=== PATIENT | female | born 1995 | race Caucasian/White ===

== ENCOUNTER 2017-11-19 18:12 | Emergency (ER) | payer OTHER ==
[~2017-11-19] VITALS: Ht 165.1 cm; Wt 50.0 kg
[2017-11-19 18:27] VITALS: BP 148/84; PULSE 90; RESP 16; TEMP 98.9; O2SAT 99
[2017-11-19 19:48] LABS: BACTERIA, URINE RARE /hpf; BILIRUBIN, URINE NEG (NEG); BLOOD, URINE NEG (NEG); GLUCOSE,URINE NEG (NEG); KETONE, URINE NEG (NEG); NITRITE,URINE NEG (NEG); SQUAMOUS EPITHELIAL CELL URINE <1 /hpf (0-5); URINE COLOR LIGHT-YELLOW (YELLW/STRAW); URINE LEUKOCYTE ESTERASE NEG (NEG)
--- NOTE | 2017-11-19 20:34 | PD ---
HPI Chief Complaint: Complaint Time Seen by Provider: 20:22 Travel History International Travel<30 days: No Contact w/Intl Traveler<30days: No Traveled to known affect area: No History of Present Illness HPI This patient was examined in the presence of a female nurse. 21-year-old female presents for evaluation of increased urinary frequency and vaginal discharge. Symptoms started 30 days ago. She reports that she was seen at an outside urgent care center and prescribed ciprofloxacin which she has been taking for the past 20 days. The increased urinary frequency and vaginal discharge persists and this is what prompted evaluation. She reports that the discharge is brown in color. She reports associated lower back discomfort but not focal unilateral flank pain. She endorses slight nausea. Denies dysuria, fevers, chills, myalgias. She reports a history of very frequent UTIs over the past few years. She moved from [place] to this region in April 2017. She does not currently have a primary care physician. No other complaints at this time. PFSH Past Medical History Respiratory: Yes (ASTHMA) ?: Not LMP: 11/11/17 Social History Alcohol Use: No Tobacco Use: No Allergies-Medications (Allergen,Severity, Reaction): Coded Allergies: No Known Allergies (Unverified , 11/19/17) Reported Meds & Prescriptions Reported Meds & Active Scripts Active Doxycycline Hyclate 100 Mg Cap 100 Mg PO BID Flagyl (Metronidazole) 500 Mg Tab 500 Mg PO BID 14 Days Reported Xanax (Alprazolam) 0.5 Mg Tab 0.5 Mg PO Q8H PRN Carnitor Liq (Levocarnitine) 1 Gm/10 Ml Soln 500 Mg PO BID Singulair (Montelukast Sodium) 10 Mg Tab 10 Mg PO HS Review of Systems Except as stated in HPI: all other systems reviewed are Neg Physical Exam Narrative GENERAL: Well-developed well-nourished female no acute distress SKIN: Warm and dry. HEAD: Atraumatic. Normocephalic. EYES: Pupils equal and round. No scleral icterus. No injection or drainage. ENT: No nasal bleeding or discharge. Mucous membranes pink and moist. NECK: Trachea midline. No JVD. CARDIOVASCULAR: Regular rate and rhythm. No murmur appreciated. RESPIRATORY: No accessory muscle use. Clear to auscultation. Breath sounds equal bilaterally. GASTROINTESTINAL: Abdomen soft, non-tender, nondistended. Hepatic and splenic margins not palpable. There is no CVA tenderness. Pelvic examination the presence of a female nurse: There is yellow purulent discharge noted in the vaginal canal. There is cervical motion tenderness. There is no adnexal tenderness. MUSCULOSKELETAL: No obvious deformities. No clubbing. No cyanosis. No edema. NEUROLOGICAL: Awake and alert. No obvious cranial nerve deficits. Motor grossly within normal limits. Normal speech. Data Data Last Documented VS Vital Signs Date Time Temp Pulse Resp B/P (MAP) Pulse Ox O2 Delivery O2 Flow Rate FiO2 11/19/17 18:27 98.9 90 16 148/84 (105) 99 Orders Orders Urinalysis - C+S If Indicated (11/19/17 18:33) Ed Urine Pregnancytest Poc (11/19/17 18:33) Gc And Chlamydia Pcr (11/19/17 20:30) Wet Prep Profile (11/19/17 20:30) Doxycycline (Vibratab) (11/19/17 22:00) Metronidazole (Flagyl) (11/19/17 22:00) Ceftriaxone Inj (Rocephin Inj) (11/19/17 22:00) Lidocaine 1% Inj (50 Ml) (Xylocaine 1% I (11/19/17 22:00) Ed Discharge Order (11/19/17 21:46) Labs Laboratory Tests Test 11/19/17 19:00 11/19/17 20:55 Urine Color LIGHT-YELLOW Urine Turbidity CLEAR Urine pH 7.0 Urine Specific [place] 1.019 Urine Protein NEG mg/dL Urine Glucose (UA) NEG mg/dL Urine Ketones NEG mg/dL Urine Occult Blood NEG Urine Nitrite NEG Urine Bilirubin NEG Urine Urobilinogen LESS THAN 2.0 MG/DL Urine Leukocyte Esterase NEG Urine WBC LESS THAN 1 /hpf Urine Squamous Epithelial Cells <1 /hpf Urine Bacteria RARE /hpf Microscopic Urinalysis Comment CULT NOT INDICATED Clue Cells (Wet Prep) PRESENT Vaginal Trichomonas (Wet Prep) NONE SEEN Vaginal Yeast (Wet Prep) NONE SEEN MDM Medical Decision Making Medical Screen Exam Complete: Yes Emergency Medical Condition: Yes Medical Record Reviewed: Yes Differential Diagnosis Vaginitis, vaginosis, cervicitis, pelvic inflammatory disease, cystitis, pyelonephritis Narrative Course 21-year-old female with brown vaginal discharge and increased urinary frequency for 30 days, concerned about the possibility UTI, recently finished a total of 20 days of ciprofloxacin for presumed UTI diagnosed at an outside urgent care center. Urinalysis is reassuring-reveals rare bacteria with no leukocytes, nitrites to suggest urinary tract infection. On examination she has yellow discharge in the vaginal canal, cervical motion tenderness is present. Wet prep is positive for clue cells. Chlamydia gonorrhea results are pending at the time of this dictation. The patient will be treated with Rocephin, doxycycline, Flagyl. Diagnosis Primary Impression: Pelvic inflammatory disease Additional Impression: Bacterial vaginosis Additional Instructions: Medication as prescribed. Follow-up with a primary care physician. Return for any emergent medical conditions. Med/Other Pt SpecificInfo: Prescription(s) given Scripts Doxycycline Hyclate (Doxycycline Hyclate) 100 Mg Cap 100 MG PO BID for Infection, #28 CAP 0 Refills Prov: Gus Robertson MD 11/19/17 Metronidazole (Flagyl) 500 Mg Tab 500 MG PO BID for Infection for 14 Days, #28 TAB 0 Refills Prov: Gus Robertson MD 11/19/17 Disposition: 01 DISCHARGE HOME Condition: Stable Koby Stahl Nov 19, 2017 20:34
[2017-11-19] MEDS ORDERED: LEVO10%S PO (20:36)
[2017-11-19] MEDS ORDERED: MONT10TA2 PO (20:36)
[2017-11-19] MEDS ORDERED: ALPR.5 PO (20:37)
[2017-11-19] MEDS ORDERED: METR-1 PO (21:49)
[2017-11-19] MEDS ORDERED: DOXY100C PO (21:49)
[2017-11-19] MEDS ORDERED: LIDOCAINE HCL 1% 50 ML VIAL IM ONE (22:00)
[2017-11-19] MEDS ORDERED: metroNIDAZOLE 500 MG TAB PO ONE (22:00)
[2017-11-19] MEDS ORDERED: DOXYCYCLINE HYCLATE 100 MG TAB PO ONE (22:00)
[2017-11-19] MEDS ORDERED: cefTRIAXone 250 MG VIAL IM ONE (22:00)
[2017-11-19] MEDS ORDERED: LIDOCAINE HCL 1% 20 ML VIAL INFIL ONE (22:15)
== END 2017-11-19 22:25 | disposition home or self-care (01) ==
LOC: NEPD 18:12
DX: N73.9 Female pelvic inflammatory disease, unspecified (principal); N76.0 Acute vaginitis; J45.909 Unspecified asthma, uncomplicated
CPT/HCPCS: 81001; 84703; 87210; 96372; 99283; J0696; 87491; 87591